=== PATIENT | female | born 1985 | race Caucasian/White ===

== ENCOUNTER 2016-11-27 20:01 | Emergency (ER) | payer BC ==
[~2016-11-27] VITALS: Ht 154.9 cm; Wt 54.9 kg
[2016-11-27 20:01] VITALS: BP 118/72
--- NOTE | 2016-11-27 20:18 | PHYS DOC ---
Past Medical History Past Medical History: No Pertinent History Past Surgical History: , Other Additional Past Surgical Histo: wrist and knee surgery Alcohol Use: None Drug Use: None Adult General Chief Complaint Chief Complaint: BACK PAIN - NO INJURY HPI HPI Patient is a 31 year old female with no significant medical history who presents with upper back pain that began yesterday. Patient states approximately 2 weeks ago she slid on mad and fell on her back. Patient states she had pain for couple days then it stopped then yesterday the pain begun again. Patient denies any loss of consciousness when she fell. Denies any pain radiating to bilateral upper extremities and lower extremities. Denies any loss of bowel bladder function. Denies any chance she is , she states her tubes tied. Review of Systems Review of Systems Constitutional: Denies fever or chills [] Eyes: Denies change in visual acuity, redness, or eye pain [] GI: Denies abdominal pain, nausea, vomiting, bloody stools or diarrhea [] : Denies dysuria or hematuria [] Musculoskeletal: upper back pain Integument: Denies rash or skin lesions [] Neurologic: Denies headache, focal weakness or sensory changes [] Current Medications Current Medications Current Medications Medications (Trade) Dose Ordered Sig/Taisha Start Time Stop Time Status Last Admin Dose Admin Acetaminophen/ Hydrocodone Bitart (Lortab 5/325) 1 tab 1X ONCE 11/27/16 20:30 11/27/16 20:31 DC 11/27/16 20:18 1 TAB Cyclobenzaprine HCl (Flexeril) 10 mg 1X ONCE 11/27/16 20:30 11/27/16 20:31 DC 11/27/16 20:18 10 MG Allergies Allergies Allergies Coded Allergies Type Severity Reaction Last Updated Verified aspirin Allergy Severe Anaphylaxis 06/11/15 Yes Physical Exam Physical Exam Constitutional: Well developed, well nourished, no acute distress, non-toxic appearance. [] Neck: Normal range of motion, mild midline lower cervical spine tenderness, supple, no stridor. [] Abdomen: Bowel sounds normal, soft, no tenderness, no masses, no pulsatile masses. [] Skin: Warm, dry, no erythema, no rash. [] Back: mild midline upper thoracic tenderness, no CVA tenderness. [] Extremities: No tenderness, no cyanosis, no clubbing, ROM intact, no edema. [] Neurologic: Alert and oriented X 3, normal motor function, normal sensory function, no focal deficits noted. [] Psychologic: Affect normal, judgement normal, mood normal. [] Current Patient Data Vital Signs Vital Signs Date Time Temp Pulse Resp B/P (MAP) Pulse Ox O2 Delivery O2 Flow Rate FiO2 11/27/16 20:01 98.4 94 14 100 Room Air 98.4 EKG EKG [] Radiology/Procedures Radiology/Procedures []PROCEDURE: CT CERVICAL SPINE WO CONTRAST Indication: Neck pain after fall 2 weeks ago. Technique: Axial images and coronal and sagittal reformatted images are provided. No comparison is available. One or more of the following individualized dose reduction techniques were utilized for this examination: 1. Automated exposure control 2. Adjustment of the mA and/or kV according to patient size 3. Use of iterative reconstruction technique Findings: There is no fracture or dislocation. Prevertebral soft tissues are within normal limits. Craniovertebral junction is unremarkable. Mild disc osteophyte complex at C6-C7 is noted along with uncinate process spurring which is minimal and greater on the right. There is no high-grade canal or foraminal compromise. Lymph nodes along the cervical chains are presumed reactive. There is emphysema in the lung apices, mild to moderate and more than would be expected for a patient of this age. IMPRESSION: 1. Negative for fracture or dislocation in the cervical spine. 2. Mild degenerative changes at C6-C7. 3. [id number] emphysema in the lung apices. Electronically signed by: Lourdes Chambers MD (11/27/2016 10:18 PM) [facility] DICTATED and SIGNED BY: LOURDES CHAMBERS MD DATE: 11/27/16 2213 CC: ROSS CESPEDES APRN; NO PCP ~ PROCEDURE: CT THORACIC SPINE WO CONTRAST Indication: Back pain after a fall 2 weeks ago. Technique: Axial images and coronal and sagittal reformatted images are provided. No comparison is available. One or more of the following individualized dose reduction techniques were utilized for this examination: 1. Automated exposure control 2. Adjustment of the mA and/or kV according to patient size 3. Use of iterative reconstruction technique Findings: There is no fracture or dislocation. Vertebral body height is maintained. There is minimal endplate irregularity but no canal or foraminal compromise apparent on this noncontrast study. There is [id number] emphysema with an upper lobe predominance, appears to be both paraseptal and centrilobular. IMPRESSION: Negative for fracture. Electronically signed by: Lourdes Chambers MD (11/27/2016 10:24 PM) [facility] DICTATED and SIGNED BY: LOURDES CHAMBERS MD DATE: 11/27/162217 CC: ROSS CESPEDES APRN; NO PCP ~ Course & Med Decision Making Course & Med Decision Making Pertinent Labs and Imaging studies reviewed. (See chart for details) Patient is in the ED with upper back and lower neck pain that began yesterday, she states she fell down [address] of the cervical spine and thoracic spine interpreted by radiologist are negative for any acute findings. CT was noted for emphysema. Patient states she is a smoker, she was encouraged to consider smoking cessation. Discharged with Medrol Dosepak naproxen and Flexeril and instructed to follow-up with the PCP in 1-2 weeks. Dragon Disclaimer Dragon Disclaimer This electronic medical record was generated, in whole or in part, using a voice recognition dictation system. Departure Departure Impression: Primary Impression: Fall from standing Additional Impressions: Acute cervical sprain Thoracic back sprain Smoking addiction Emphysema lung Disposition: HOME, SELF-CARE Condition: STABLE Referrals: NO PCP (PCP) Follow-up with your doctor in 1-2 weeks Patient Instructions: Cervical Sprain, Fall Prevention and Home Safety, Smoking Cessation, Thoracic Strain Additional Instructions: You were seen for acute sprain of the cervical spine and thoracic spine. Apply ice or heat to the affected areas. Take the prescribed medications as ordered. Do not drive or operate machinery on the pain medications prescribed. Follow-up with your doctor in 1-2 weeks. Consider smoking cessation. Your CT shows you have emphysema. This is a smoking illness. Scripts Cyclobenzaprine Hcl (CYCLOBENZAPRINE HCL) 10 Mg Tablet 1 TAB PO TID, #30 TAB Prov: ROSS CESPEDES APRN 11/27/16 Naproxen (NAPROXEN) 500 Mg Tablet. 1 TAB PO BID, #60 TAB 2 Refills Prov: ROSS CESPEDES APRN 11/27/16 Acetaminophen With Codeine (TYLENOL WITH CODEINE #3 TABLET) 1 Each Tablet 1 TAB PO PRN Q6HRS Y for PAIN, #14 TAB Prov: ROSS CESPEDES BARTENDERS 11/27/16 Methylprednisolone (MEDROL) 4 Mg Tab.ds.pk 1 PKG PO UD, #1 PKG Prov: ROSS CESPEDES BARTENDERS 11/27/16 Problem Qualifiers Primary Impression: Fall from standing Encounter type: initial encounter Qualified Codes: W19.XXXA - Unspecified fall, initial encounter Additional Impressions: Acute cervical sprain Encounter type: initial encounter Qualified Codes: S13.9XXA - Sprain of joints and ligaments of unspecified parts of neck, initial encounter Thoracic back sprain Encounter type: initial encounter Qualified Codes: S23.9XXA - Sprain of unspecified parts of thorax, initial encounter Emphysema lung Emphysema type: other Qualified Codes: J43.8 - Other emphysema ROSS CESPEDES BARTENDERS Nov 27, 2016 20:18
[2016-11-27] MEDS ORDERED: CYCLOBENZAPRINE 10 MG TABLET. PO ONE (20:30)
[2016-11-27] MEDS ORDERED: HYDROcodone/APAP 5/325MG 1 TAB TABLET PO ONE (20:30)
--- NOTE | 2016-11-27 22:21 | RAD ---
Indication: Neck pain after fall 2 weeks ago. Technique: Axial images and coronal and sagittal reformatted images are provided. No comparison is available. One or more of the following individualized dose reduction techniques were utilized for this examination: 1. Automated exposure control 2. Adjustment of the mA and/or kV according to patient size 3. Use of iterative reconstruction technique Findings: There is no fracture or dislocation. Prevertebral soft tissues are within normal limits. Craniovertebral junction is unremarkable. Mild disc osteophyte complex at C6-C7 is noted along with uncinate process spurring which is minimal and greater on the right. There is no high-grade canal or foraminal compromise. Lymph nodes along the cervical chains are presumed reactive. There is emphysema in the lung apices, mild to moderate and more than would be expected for a patient of this age. IMPRESSION: 1. Negative for fracture or dislocation in the cervical spine. 2. Mild degenerative changes at C6-C7. 3. [id number] emphysema in the lung apices. Electronically signed by: Virgil Chambers MD (11/27/2016 10:18 PM) [facility]
--- NOTE | 2016-11-27 22:27 | RAD ---
Indication: Back pain after a fall 2 weeks ago. Technique: Axial images and coronal and sagittal reformatted images are provided. No comparison is available. One or more of the following individualized dose reduction techniques were utilized for this examination: 1. Automated exposure control 2. Adjustment of the mA and/or kV according to patient size 3. Use of iterative reconstruction technique Findings: There is no fracture or dislocation. Vertebral body height is maintained. There is minimal endplate irregularity but no canal or foraminal compromise apparent on this noncontrast study. There is [id number] emphysema with an upper lobe predominance, appears to be both paraseptal and centrilobular. IMPRESSION: Negative for fracture. Electronically signed by: Virgil Chambers MD (11/27/2016 10:24 PM) [facility]
[2016-11-27] MEDS ORDERED: NAPR500T8 PO (22:42)
[2016-11-27] MEDS ORDERED: CYCL10TA2 PO (22:42)
[2016-11-27] MEDS ORDERED: ACET-704 PO (22:42)
[2016-11-27] MEDS ORDERED: METH4TAB2 PO (22:42)
== END 2016-11-27 23:04 | disposition home or self-care (01) ==
LOC: ER 20:01
DX: S23.3XXA Sprain of ligaments of thoracic spine, initial encounter (principal); S13.9XXA Sprain of joints and ligaments of unspecified parts of neck, initial encounter; J43.8 Other emphysema; Z88.6 Allergy status to analgesic agent; W18.39XA Other fall on same level, initial encounter; Y93.89 Activity, other specified; Y99.8 Other external cause status; Y92.89 Other specified places as the place of occurrence of the external cause
CPT/HCPCS: 72125; 72128; 99284-25

== ENCOUNTER 2017-06-11 20:28 | Emergency (ER) | payer OTHER, BC ==
[2017-06-11] MEDS: DIPHTH,PERTUSS(ACELL),TET TOX 0.5 ML DISP.SYRIN. VAX IM (21:06)
== END 2017-06-11 21:29 | disposition home or self-care (01) ==
LOC: ER 20:28
DX: S61.259A Open bite of unspecified finger without damage to nail, initial encounter (principal); S61.452A Open bite of left hand, initial encounter; Z23 Encounter for immunization; Z88.6 Allergy status to analgesic agent; W55.01XA Bitten by cat, initial encounter; Y93.89 Activity, other specified; Y92.89 Other specified places as the place of occurrence of the external cause; Y99.8 Other external cause status
CPT/HCPCS: 90471; 90715; 99283-25

== ENCOUNTER 2017-06-13 20:13 | Emergency (ER) | payer OTHER | END 2017-06-13 21:56 | disposition home or self-care (01) | LOC: ER 21:56 | DX: R11.0 Nausea (principal); T36.0X5A Adverse effect of penicillins, initial encounter; Z88.6 Allergy status to analgesic agent; Y92.89 Other specified places as the place of occurrence of the external cause | CPT/HCPCS: 99283 ==